=== PATIENT | male | born 1955 | race Caucasian/White ===

== ENCOUNTER 2016-11-04 05:34 | Inpatient (IN) | payer OTHER ==
[~2016-11-04] VITALS: Ht 162.6 cm; Wt 96.2 kg
[~2016-11-04 05:34] MED LIST: AMLO5TAB2 PO; ASPI-496 PO; FERR325T20 PO; FLUO15CR2 TP; HYDR-3240 PO; OMEP-110 PO; OXYC-302 PO; POLY17PO5 PO; POTA10TA5 PO; POTASSIUM PO; TELM1TAB3 PO
[2016-11-04 06:24] VITALS: BP 143/81
[2016-11-04] MEDS ORDERED: LACTATED RINGERS 1,000 ML IV SCH (06:24)
[2016-11-04] MEDS ORDERED: LIDOCAINE 1%, 2ML SQ PRN (06:30)
[2016-11-04] MEDS ORDERED: NEOM500T PO (06:30)
[2016-11-04] MEDS ORDERED: METR250T4 PO (06:30)
[2016-11-04] MEDS ORDERED: IBUP800T PO (06:30)
[2016-11-04] MEDS ORDERED: FENTANYL PF 250 MCG/5ML ONE (07:08)
[2016-11-04] MEDS ORDERED: HYDROmorphone 1 MG/ML, 1ML ONE (07:08)
[2016-11-04] MEDS ORDERED: MIDAZOLAM 1 MG/ML, 2ML ONE (07:08)
[2016-11-04] MEDS ORDERED: BUPIVACAINE/PF-EPI 0.25% 1:200K ONE (07:15)
[2016-11-04] MEDS ORDERED: HEPARIN 1,000 UNITS/ML, 10ML ONE (07:15)
[2016-11-04] MEDS ORDERED: THROMBIN 20,000 UNIT VIAL TP ONE (07:15)
[2016-11-04] MEDS ORDERED: PROPOFOL 10 MG/ML, 20ML ONE (07:35)
[2016-11-04] MEDS ORDERED: ESMOLOL 100 MG/10 ML ONE (07:35)
[2016-11-04] MEDS ORDERED: SUCCINYLCHOLINE 20 MG/ML, 10ML ONE (07:35)
[2016-11-04] MEDS ORDERED: CEFOTETAN 2 GM ONE (07:35)
[2016-11-04] MEDS ORDERED: PHENYLEPHRINE 10 MG/ML ONE (07:35)
[2016-11-04] MEDS ORDERED: ROCURONIUM 10 MG/ML ONE (07:35)
[2016-11-04] MEDS ORDERED: EPINEPHRINE 1 MG/ML, 1ML ONE (07:35)
[2016-11-04] MEDS ORDERED: ONDANSETRON 2MG/ML, 2ML ONE (07:35)
[2016-11-04] MEDS ORDERED: DEXAMETHASONE 4 MG/ML, 1ML ONE (07:35)
[2016-11-04] MEDS ORDERED: ALBUMIN HUMAN 5% 500 ML ONE (07:47)
[2016-11-04] MEDS ORDERED: VASOPRESSIN 20 UNIT/ML, 1ML ONE (08:20)
[2016-11-04] MEDS ORDERED: BUPIVACAINE/PF 0.25% ONE (08:20)
[2016-11-04] MEDS ORDERED: BUPIVACAINE/PF-EPI 0.25% 1:200K INFIL ONE (08:59)
[2016-11-04] MEDS ORDERED: PROMETHAZINE 25 MG/ML, 1ML IV PRN (10:00)
[2016-11-04] MEDS ORDERED: EPIDURAL CONTINUOUS INFUSION EPIDCONT SCH (10:00)
[2016-11-04] MEDS ORDERED: NALBUPHINE 10 MG/ML, 1ML IVPush PRN (10:00)
[2016-11-04] MEDS ORDERED: FENTANYL EPIDCONT SCH (10:00)
[2016-11-04] MEDS ORDERED: MEPERIDINE/PF 25MG/0.5ML IVPush PRN (10:00)
[2016-11-04] MEDS ORDERED: OXYcodone 5 MG/5 ML ORAL.SOL UDC PO PRN (10:00)
[2016-11-04] MEDS ORDERED: ONDANSETRON 2MG/ML, 2ML IVPush PRN (10:00)
[2016-11-04] MEDS: SODIUM CHLORIDE FLUSH 10ML SYR IVF SCH ×2 (10:00→21:18)
[2016-11-04] MEDS ORDERED: MIDAZOLAM 1 MG/ML, 2ML IV PRN (10:00)
[2016-11-04] MEDS ORDERED: LABETALOL 5MG/ML, 20ML IV PRN (10:00)
[2016-11-04] MEDS ORDERED: HYDROmorphone 1 MG/ML, 1ML IV PRN (10:00)
[2016-11-04] MEDS ORDERED: SODIUM CHLORIDE 0.9% EPIDCONT SCH ×2 (10:00→11:00)
[2016-11-04] MEDS ORDERED: hydrALAzine 20 MG/ML, 1ML IV PRN (10:00)
[2016-11-04] MEDS ORDERED: EPHEDRINE 50 MG/ML, 1ML IVPush PRN ×2 (10:00)
[2016-11-04] MEDS ORDERED: BUPIVACAINE EPIDCONT SCH ×2 (10:00→11:00)
[2016-11-04] MEDS ORDERED: ACETAMINOPHEN 325 MG TABLET PO PRN (10:00)
[2016-11-04] MEDS ORDERED: KETOROLAC 30 MG/1 ML IV PRN ×2 (10:00→18:30)
[2016-11-04] MEDS ORDERED: HYDROcodone/APAP 7.5-325MG/15ML UDC PO PRN (10:00)
[2016-11-04] MEDS ORDERED: DO NOT GIVE XX SCH ×2 (10:00)
[2016-11-04] MEDS ORDERED: FENTANYL PF 100 MCG/2ML ONE ×3 (15:23→17:21)
[2016-11-04] MEDS: FENTANYL PF 100 MCG/2ML IV PRN ×4 (15:53→17:38)
[2016-11-04] MEDS ORDERED: HYDROmorphone 2 MG/ML, 1ML ONE (16:24)
[2016-11-04] MEDS ORDERED: ACETAMINOPHEN 650 MG/20.3 ML UDC ONE (16:24)
[2016-11-04] MEDS ORDERED: OXYcodone 5 MG/5 ML ORAL.SOL UDC ONE (16:25)
[2016-11-04] MEDS ORDERED: ACETAMINOPHEN 325 MG TABLET ONE (16:25)
[2016-11-04] MEDS: HYDROmorphone 1 MG/ML, 1ML IV PRN ×2 (16:30→16:43)
[2016-11-04] MEDS: BUPIVACAINE EPIDCONT SCH (17:17)
[2016-11-04] MEDS: SODIUM CHLORIDE 0.9% EPIDCONT SCH (17:17)
[2016-11-04] MEDS ORDERED: morphine SULFATE 10 MG/ML, 1ML IV PRN (18:30)
[2016-11-04] MEDS ORDERED: DIPHENHYDRAMINE 25 MG CAPSULE PO PRN (18:30)
[2016-11-04] MEDS: LACTATED RINGERS 1,000 ML IV SCH (18:30)
[2016-11-04] MEDS ORDERED: DIPHENHYDRAMINE 50 MG/ML, 1ML IV PRN (18:30)
[2016-11-04] MEDS: CEFOTETAN PMX 2GM/50ML 50 ML IVPB SCH (19:23)
[2016-11-04 21:18] VITALS: BP 110/58
[2016-11-05 00:19] VITALS: BP 122/61
[2016-11-05] MEDS: LACTATED RINGERS 1,000 ML IV SCH ×3 (00:25→17:25)
[2016-11-05] MEDS: HYDROmorphone 1 MG/ML, 1ML IV PRN ×3 (02:26→08:20)
[2016-11-05] MEDS: BUPIVACAINE EPIDCONT SCH ×3 (02:32→16:21)
[2016-11-05] MEDS: SODIUM CHLORIDE 0.9% EPIDCONT SCH ×3 (02:32→16:21)
[2016-11-05 04:18] VITALS: BP 121/63
[2016-11-05 05:00] LABS: BLOOD UREA NITROGEN 17 mg/dL (7-18)
[2016-11-05] MEDS: CEFOTETAN PMX 2GM/50ML 50 ML IVPB SCH (06:49)
[2016-11-05 07:44] VITALS: BP 107/60
[2016-11-05] MEDS ORDERED: HYDROmorphone 1 MG/ML, 1ML IVPush PRN ×3 (08:00→20:00)
[2016-11-05] MEDS ORDERED: MAGNESIUM SULFATE PMX 2GM/50ML 50 ML IV ONE (08:00)
[2016-11-05] MEDS: SODIUM CHLORIDE FLUSH 10ML SYR IVF SCH ×2 (08:21→21:00)
[2016-11-05] MEDS: AMLODIPINE 5 MG TABLET PO SCH (08:31)
[2016-11-05] MEDS: HYDROCHLOROTHIAZIDE 12.5 MG CAPSULE PO SCH (08:31)
[2016-11-05] MEDS: LOSARTAN 50MG TABLET PO SCH (08:31)
[2016-11-05] MEDS: ENOXAPARIN 40 MG/0.4 ML SQ SCH (09:00)
[2016-11-05] MEDS ORDERED: HYDROmorphone 1 MG/ML, 1ML IV PRN (10:00)
[2016-11-05] MEDS ORDERED: HYDROmorphone 1 MG/ML, 1ML IV ONE (10:00)
[2016-11-05] MEDS ORDERED: FENTANYL PF 100 MCG/2ML IV ONE (11:00)
[2016-11-05] MEDS: FENTANYL PF 100 MCG/2ML IVPush PRN ×6 (11:01→16:15)
[2016-11-05] MEDS ORDERED: LIDOCAINE/PF 1.5-EPI 1:200K, 30 ML INFIL ONE (14:00)
[2016-11-05 14:30] VITALS: BP 123/75
[2016-11-05] MEDS ORDERED: HYDROmorphone 2 MG/ML, 1ML IVPush ONE (14:30)
[2016-11-05] MEDS ORDERED: BUPIVACAINE 0.25% ONE ×2 (15:11→17:40)
[2016-11-05] MEDS ORDERED: HYDROmorphone PCA 30 MG/30 ML IV PRN (17:00)
[2016-11-05] MEDS: ONDANSETRON 2MG/ML, 2ML IV PRN (17:22)
[2016-11-05 18:51] VITALS: BP 138/75
[2016-11-06] MEDS: LACTATED RINGERS 1,000 ML IV SCH ×2 (00:36→08:08)
[2016-11-06 03:01] VITALS: BP 126/77
[2016-11-06 05:31] LABS: BLOOD UREA NITROGEN 14 mg/dL (7-18)
[2016-11-06 07:28] VITALS: BP 139/77
[2016-11-06] MEDS: OMEPRAZOLE 20 MG CAPSULE.DR PO SCH (08:06)
[2016-11-06] MEDS: AMLODIPINE 5 MG TABLET PO SCH (08:07)
[2016-11-06] MEDS: HYDROCHLOROTHIAZIDE 12.5 MG CAPSULE PO SCH (08:07)
[2016-11-06] MEDS: LOSARTAN 50MG TABLET PO SCH (08:07)
[2016-11-06] MEDS: SODIUM CHLORIDE FLUSH 10ML SYR IVF SCH ×2 (08:08→21:00)
[2016-11-06] MEDS: ONDANSETRON 2MG/ML, 2ML IV PRN ×3 (10:13→23:57)
[2016-11-06] MEDS: ENOXAPARIN 40 MG/0.4 ML SQ SCH (10:14)
[2016-11-06] MEDS: KETOROLAC 30 MG/1 ML IV SCH ×3 (12:01→23:48)
[2016-11-06] MEDS: NS + 20MEQ KCL 1,000 ML IV SCH (12:41)
[2016-11-06 13:51] VITALS: BP 134/74
[2016-11-06 19:31] VITALS: BP 137/76
[2016-11-07 01:30] VITALS: BP 146/72
[2016-11-07] MEDS: ONDANSETRON 2MG/ML, 2ML IV PRN (05:48)
[2016-11-07] MEDS: KETOROLAC 30 MG/1 ML IV SCH ×4 (05:56→23:11)
[2016-11-07] MEDS ORDERED: CALCIUM CARBONATE 500 MG TAB.CHEW PO PRN (06:30)
[2016-11-07 07:24] VITALS: BP 122/72
[2016-11-07] MEDS: NS + 20MEQ KCL 1,000 ML IV SCH (08:10)
[2016-11-07 08:30] VITALS: BP 132/68
[2016-11-07] MEDS: OMEPRAZOLE 20 MG CAPSULE.DR PO SCH (08:33)
[2016-11-07] MEDS: HYDROCHLOROTHIAZIDE 12.5 MG CAPSULE PO SCH (08:33)
[2016-11-07] MEDS: AMLODIPINE 5 MG TABLET PO SCH (08:34)
[2016-11-07] MEDS: LOSARTAN 50MG TABLET PO SCH (08:34)
[2016-11-07] MEDS: ENOXAPARIN 40 MG/0.4 ML SQ SCH (08:35)
[2016-11-07] MEDS: SODIUM CHLORIDE FLUSH 10ML SYR IVF SCH ×2 (09:00→23:12)
[2016-11-07 09:29] LABS: BLOOD UREA NITROGEN 31 mg/dL (7-18)
[2016-11-07 09:32] LABS: ASPARTATE AMINO TRANSFERASE 9 U/L (15-37)
[2016-11-07 13:21] VITALS: BP 112/67
[2016-11-07 19:26] VITALS: BP 107/61
[2016-11-08 01:18] VITALS: BP 106/57
[2016-11-08] MEDS: NS + 20MEQ KCL 1,000 ML IV SCH (04:32)
[2016-11-08 05:26] LABS: ASPARTATE AMINO TRANSFERASE 12 U/L (15-37); BLOOD UREA NITROGEN 32 mg/dL (7-18)
[2016-11-08] MEDS: KETOROLAC 30 MG/1 ML IV SCH ×3 (06:09→18:13)
[2016-11-08 08:10] VITALS: BP 120/64
[2016-11-08] MEDS: SODIUM CHLORIDE FLUSH 10ML SYR IVF SCH ×2 (09:00→21:00)
[2016-11-08 09:17] VITALS: BP 120/69
[2016-11-08] MEDS: AMLODIPINE 5 MG TABLET PO SCH (09:19)
[2016-11-08] MEDS: HYDROCHLOROTHIAZIDE 12.5 MG CAPSULE PO SCH (09:19)
[2016-11-08] MEDS: OMEPRAZOLE 20 MG CAPSULE.DR PO SCH (09:19)
[2016-11-08] MEDS: ENOXAPARIN 40 MG/0.4 ML SQ SCH (09:19)
[2016-11-08] MEDS: LOSARTAN 50MG TABLET PO SCH (09:19)
[2016-11-08 13:10] VITALS: BP 120/70
[2016-11-08] MEDS: ONDANSETRON 2MG/ML, 2ML IV PRN (13:36)
[2016-11-08] MEDS: HYDROmorphone PCA 30 MG/30 ML IV PRN (18:54)
[2016-11-08 19:18] VITALS: BP 118/62
[2016-11-09 01:40] VITALS: BP 99/58
[2016-11-09 05:13] LABS: BLOOD UREA NITROGEN 33 mg/dL (7-18)
[2016-11-09 05:36] LABS: DIFF TOTAL CELLS COUNTED 100 CELL DIFF
[2016-11-09 05:42] LABS: VERIFY COUNTS? YES
[2016-11-09 05:43] LABS: POLYCHROMASIA 1+
[2016-11-09] MEDS: KETOROLAC 30 MG/1 ML IV SCH ×2 (05:49)
[2016-11-09 08:07] VITALS: BP 119/72
[2016-11-09] MEDS: LOSARTAN 50MG TABLET PO SCH (08:13)
[2016-11-09] MEDS: HYDROCHLOROTHIAZIDE 12.5 MG CAPSULE PO SCH (08:14)
[2016-11-09] MEDS: AMLODIPINE 5 MG TABLET PO SCH (08:15)
[2016-11-09] MEDS: OMEPRAZOLE 20 MG CAPSULE.DR PO SCH (08:15)
[2016-11-09] MEDS: SODIUM CHLORIDE FLUSH 10ML SYR IVF SCH ×2 (08:16→22:50)
[2016-11-09] MEDS: ENOXAPARIN 40 MG/0.4 ML SQ SCH (08:16)
[2016-11-09] MEDS: NS + 20MEQ KCL 1,000 ML IV SCH ×3 (15:06→22:50)
[2016-11-09 15:08] VITALS: BP 133/71
[2016-11-09] MEDS: ONDANSETRON 2MG/ML, 2ML IV PRN (17:26)
[2016-11-09 21:58] VITALS: BP 132/72
[2016-11-10] VITALS (11 sets, daily range): BP systolic 113–142; BP diastolic 55–73
[2016-11-10 04:54] LABS: BLOOD UREA NITROGEN 24 mg/dL (7-18)
[2016-11-10 05:50] LABS: DIFF TOTAL CELLS COUNTED 100 CELL DIFF
[2016-11-10 05:53] LABS: POLYCHROMASIA 1+; VERIFY COUNTS? YES
[2016-11-10] MEDS: NS + 20MEQ KCL 1,000 ML IV SCH ×2 (07:35→17:14)
[2016-11-10] MEDS: HYDROCHLOROTHIAZIDE 12.5 MG CAPSULE PO SCH (07:39)
[2016-11-10] MEDS: AMLODIPINE 5 MG TABLET PO SCH (07:40)
[2016-11-10] MEDS: SODIUM CHLORIDE FLUSH 10ML SYR IVF SCH ×2 (07:40→20:20)
[2016-11-10] MEDS: OMEPRAZOLE 20 MG CAPSULE.DR PO SCH (07:40)
[2016-11-10] MEDS: LOSARTAN 50MG TABLET PO SCH (07:40)
[2016-11-10] MEDS ORDERED: ENOXAPARIN 30 MG/0.3 ML SQ SCH (08:00)
[2016-11-11] MEDS: NS + 20MEQ KCL 1,000 ML IV SCH ×3 (01:18→19:24)
[2016-11-11 03:30] VITALS: BP 114/64
[2016-11-11 06:26] LABS: BLOOD UREA NITROGEN 18 mg/dL (7-18)
[2016-11-11 06:46] LABS: DIFF TOTAL CELLS COUNTED 100 CELL DIFF
[2016-11-11 06:49] LABS: VERIFY COUNTS? YES
[2016-11-11 06:51] LABS: POLYCHROMASIA 1+
[2016-11-11] MEDS ORDERED: ENOXAPARIN 30 MG/0.3 ML SQ SCH (08:00)
[2016-11-11 09:05] VITALS: BP 125/55
[2016-11-11] MEDS: HYDROCHLOROTHIAZIDE 12.5 MG CAPSULE PO SCH (09:07)
[2016-11-11] MEDS: LOSARTAN 50MG TABLET PO SCH (09:07)
[2016-11-11] MEDS: OMEPRAZOLE 20 MG CAPSULE.DR PO SCH (09:07)
[2016-11-11] MEDS: AMLODIPINE 5 MG TABLET PO SCH (09:07)
[2016-11-11] MEDS: ENOXAPARIN 40 MG/0.4 ML SQ SCH (09:07)
[2016-11-11] MEDS: SODIUM CHLORIDE FLUSH 10ML SYR IVF SCH ×2 (09:08→20:06)
[2016-11-11] MEDS: HYDROmorphone PCA 30 MG/30 ML IV PRN (09:11)
[2016-11-11 13:30] VITALS: BP 121/66
[2016-11-11 20:45] VITALS: BP 149/78
[2016-11-11 23:55] VITALS: BP 124/79
[2016-11-12 00:20] VITALS: BP 132/72
[2016-11-12 02:37] VITALS: BP 118/70
[2016-11-12] MEDS: NS + 20MEQ KCL 1,000 ML IV SCH ×3 (03:04→18:38)
[2016-11-12 07:35] VITALS: BP 122/70
[2016-11-12] MEDS: SODIUM CHLORIDE FLUSH 10ML SYR IVF SCH ×2 (07:50→20:32)
[2016-11-12] MEDS: ENOXAPARIN 40 MG/0.4 ML SQ SCH (10:01)
[2016-11-12] MEDS: OMEPRAZOLE 20 MG CAPSULE.DR PO SCH (10:02)
[2016-11-12] MEDS: HYDROCHLOROTHIAZIDE 12.5 MG CAPSULE PO SCH (10:03)
[2016-11-12] MEDS: LOSARTAN 50MG TABLET PO SCH (10:03)
[2016-11-12] MEDS: AMLODIPINE 5 MG TABLET PO SCH (10:03)
[2016-11-12 14:00] VITALS: BP 130/63
[2016-11-12 20:00] VITALS: BP 116/63
[2016-11-13] MEDS: NS + 20MEQ KCL 1,000 ML IV SCH ×3 (02:52→19:15)
[2016-11-13 02:53] VITALS: BP 120/71
[2016-11-13 04:36] LABS: BLOOD UREA NITROGEN 12 mg/dL (7-18)
[2016-11-13 07:19] VITALS: BP 111/59
[2016-11-13] MEDS: HYDROCHLOROTHIAZIDE 12.5 MG CAPSULE PO SCH (09:11)
[2016-11-13] MEDS: LOSARTAN 50MG TABLET PO SCH (09:11)
[2016-11-13] MEDS: AMLODIPINE 5 MG TABLET PO SCH (09:12)
[2016-11-13] MEDS: OMEPRAZOLE 20 MG CAPSULE.DR PO SCH (09:14)
[2016-11-13] MEDS: SODIUM CHLORIDE FLUSH 10ML SYR IVF SCH ×3 (09:14→19:13)
[2016-11-13] MEDS: ENOXAPARIN 40 MG/0.4 ML SQ SCH (09:14)
[2016-11-13 14:25] VITALS: BP 105/61
[2016-11-13 19:51] VITALS: BP 111/68
[2016-11-14 02:09] VITALS: BP 98/65
[2016-11-14] MEDS: NS + 20MEQ KCL 1,000 ML IV SCH ×2 (03:21→22:36)
[2016-11-14 04:48] LABS: BLOOD UREA NITROGEN 10 mg/dL (7-18)
[2016-11-14 07:25] VITALS: BP 128/75
[2016-11-14] MEDS ORDERED: MAGNESIUM SULFATE PMX 2GM/50ML 50 ML IV ONE (09:00)
[2016-11-14] MEDS: AMLODIPINE 5 MG TABLET PO SCH (09:06)
[2016-11-14] MEDS: HYDROcodone/APAP 5/325 TABLET PO PRN ×4 (09:06→21:15)
[2016-11-14] MEDS: SODIUM CHLORIDE FLUSH 10ML SYR IVF SCH ×2 (09:07→21:18)
[2016-11-14] MEDS: OMEPRAZOLE 20 MG CAPSULE.DR PO SCH (09:07)
[2016-11-14] MEDS: LOSARTAN 50MG TABLET PO SCH (09:07)
[2016-11-14] MEDS: HYDROCHLOROTHIAZIDE 12.5 MG CAPSULE PO SCH (09:07)
[2016-11-14] MEDS: ENOXAPARIN 40 MG/0.4 ML SQ SCH (09:08)
[2016-11-14] MEDS: MAGNESIUM OXIDE 400 MG TABLET PO SCH ×2 (09:40→21:18)
[2016-11-14] MEDS: HYDROmorphone PCA 30 MG/30 ML IV PRN (12:22)
[2016-11-14 13:49] VITALS: BP 102/63
[2016-11-14 20:04] VITALS: BP 112/61
[2016-11-15] MEDS: HYDROcodone/APAP 5/325 TABLET PO PRN ×6 (01:22→22:31)
[2016-11-15 04:41] VITALS: BP 120/63
[2016-11-15 06:00] LABS: BLOOD UREA NITROGEN 10 mg/dL (7-18)
[2016-11-15 08:15] VITALS: BP 115/62
[2016-11-15] MEDS: AMLODIPINE 5 MG TABLET PO SCH (09:00)
[2016-11-15] MEDS: LOSARTAN 50MG TABLET PO SCH (09:00)
[2016-11-15] MEDS: HYDROCHLOROTHIAZIDE 12.5 MG CAPSULE PO SCH (09:00)
[2016-11-15] MEDS: SODIUM CHLORIDE FLUSH 10ML SYR IVF SCH ×2 (09:00→21:00)
[2016-11-15] MEDS: OMEPRAZOLE 20 MG CAPSULE.DR PO SCH (09:48)
[2016-11-15] MEDS: ENOXAPARIN 40 MG/0.4 ML SQ SCH (09:50)
[2016-11-15 14:18] VITALS: BP 125/68
[2016-11-15] MEDS: NS + 20MEQ KCL 1,000 ML IV SCH (20:00)
[2016-11-15 21:16] VITALS: BP 116/61
[2016-11-16] MEDS: HYDROcodone/APAP 5/325 TABLET PO PRN ×3 (02:35→10:15)
[2016-11-16 03:58] LABS: BLOOD UREA NITROGEN 14 mg/dL (7-18)
[2016-11-16 04:42] VITALS: BP 104/63
[2016-11-16 06:45] VITALS: BP_SYST 124; BP_SYST 131; BP_DIAS 59; BP_DIAS 69
[2016-11-16] MEDS ORDERED: POLY17PO5 PO (07:22)
[2016-11-16] MEDS ORDERED: HYDR-3240 PO (07:22)
[2016-11-16] MEDS: OMEPRAZOLE 20 MG CAPSULE.DR PO SCH (07:50)
[2016-11-16] MEDS: ENOXAPARIN 40 MG/0.4 ML SQ SCH (10:03)
[2016-11-16] MEDS: SODIUM CHLORIDE FLUSH 10ML SYR IVF SCH (10:03)
[2016-11-16] MEDS: LOSARTAN 50MG TABLET PO SCH (10:04)
[2016-11-16] MEDS: HYDROCHLOROTHIAZIDE 12.5 MG CAPSULE PO SCH (10:04)
[2016-11-16] MEDS: AMLODIPINE 5 MG TABLET PO SCH (10:04)
== END 2016-11-16 12:55 | disposition home or self-care (01) | DRG 330 ==
LOC: ORIP 05:34 → 4NOR 18:13 → 3NW 11-09 19:34 → 4NOR 11-10 10:49 → DCLOUNGE 11-16 12:08
PROVIDERS: ADMIT Colon & Rectal Surgery; ATTEND Colon & Rectal Surgery
PROC: 0DBN0ZZ Excision of Sigmoid Colon, Open Approach (ICD-10-PCS; 2016-11-04)
PROC: 0DBB0ZZ Excision of Ileum, Open Approach (ICD-10-PCS; 2016-11-04)
PROC: 0VT00ZZ Resection of Prostate, Open Approach (ICD-10-PCS; 2016-11-04)
PROC: 0TRB07Z Replacement of Bladder with Autologous Tissue Substitute, Open Approach (ICD-10-PCS; 2016-11-04)
PROC: 0JH60WZ Insertion of Totally Implantable Vascular Access Device into Chest Subcutaneous Tissue and Fascia, Open Approach (ICD-10-PCS; 2016-11-04)
PROC: 02HV33Z Insertion of Infusion Device into Superior Vena Cava, Percutaneous Approach (ICD-10-PCS; 2016-11-04)
PROC: B5181ZA Fluoroscopy of Superior Vena Cava using Low Osmolar Contrast, Guidance (ICD-10-PCS; 2016-11-04)
PROC: B548ZZA Ultrasonography of Superior Vena Cava, Guidance (ICD-10-PCS; 2016-11-04)
PROC: 0DBP0ZZ Excision of Rectum, Open Approach (ICD-10-PCS; principal; 2016-11-04 07:30)
PROC: 0D1M0Z4 Bypass Descending Colon to Cutaneous, Open Approach (ICD-10-PCS; 2016-11-04 07:30)
PROC: 0DTJ0ZZ Resection of Appendix, Open Approach (ICD-10-PCS; 2016-11-04 07:30)
PROC: 30233N1 Transfusion of Nonautologous Red Blood Cells into Peripheral Vein, Percutaneous Approach (ICD-10-PCS; 2016-11-10)
DX: C20 Malignant neoplasm of rectum (principal); N17.9 Acute kidney failure, unspecified; C79.11 Secondary malignant neoplasm of bladder; D72.829 Elevated white blood cell count, unspecified; D50.9 Iron deficiency anemia, unspecified; I10 Essential (primary) hypertension; Z79.82 Long term (current) use of aspirin; Z79.899 Other long term (current) drug therapy; Z82.49 Family history of ischemic heart disease and other diseases of the circulatory system; Z92.21 Personal history of antineoplastic chemotherapy; Z92.3 Personal history of irradiation
CPT/HCPCS: 36415; 71010; 76000; 76770; 80048; 80053; 82040; 82330; 82803; 82947; 83735; 84132; 84295; 85014; 85025; 86850; 86900; 86923; 88304; 88309; C1729; J0171; J1100; J1170; J1644; J1650; J1885; J2250; J2405; J2704; J3010; J3480; J3490; P9045; C1765; C1788; J0330; J1200; J2370; J3475; J7120; P9016; S0074

== ENCOUNTER 2017-05-24 13:05 | Emergency (ER) | payer OTHER ==
[~2017-05-24] VITALS: Ht 162.6 cm; Wt 86.5 kg
[~2017-05-24 13:05] MED LIST changes: -DIPHENHYDRAMINE 50 MG/ML, 1ML ONE; -OMNIPAQUE 350 MG/ML, 100ML BOTTLE ONE
[2017-05-24] MEDS ORDERED: SODIUM CHLORIDE 0.9% 1,000 ML IV ONE (13:45)
[2017-05-24] MEDS ORDERED: SODIUM CHLORIDE FLUSH 10ML SYR IVF ONE (14:00)
[2017-05-24] MEDS ORDERED: DIPHENHYDRAMINE 50 MG/ML, 1ML IVPush ONE (14:00)
[2017-05-24] MEDS ORDERED: ONDANSETRON 2MG/ML, 2ML IVPush ONE (14:00)
[2017-05-24 14:09] LABS: HEMATOCRIT 40.9 % (39.2-51.8); HEMOGLOBIN 13.3 g/dL (13.7-18.0); WHITE BLOOD COUNT 9.4 x10^3/uL (3.4-10)
[2017-05-24 14:12] LABS: BLOOD UREA NITROGEN 16 mg/dL (7-18)
[2017-05-24] MEDS ORDERED: DIPHENHYDRAMINE 50 MG/ML, 1ML ONE (14:24)
[2017-05-24] MEDS ORDERED: ONDANSETRON 2MG/ML, 2ML ONE (14:24)
[2017-05-24 16:26] VITALS: BP 106/66
== END 2017-05-24 16:46 | disposition home or self-care (01) ==
LOC: ED 15:02
DX: R11.0 Nausea (principal); T50.8X5A Adverse effect of diagnostic agents, initial encounter; Y92.89 Other specified places as the place of occurrence of the external cause; I10 Essential (primary) hypertension
CPT/HCPCS: 36415; 80048; 82040; 85025; 96361; 96374; 96375; 99285; J1200; J2405; J7030

== ENCOUNTER → 2017-05-24 | Outpatient (CLI) | payer OTHER ==
[~2017-05-24] MED LIST changes: +DIPHENHYDRAMINE 50 MG/ML, 1ML ONE; +FERR325T18 PO; -FERR325T20 PO; +IBUP-1223 PO; +METR250T12 PO; +NEOM500T PO; +OMNIPAQUE 350 MG/ML, 100ML BOTTLE ONE
== END | disposition home or self-care (01) ==
LOC: RAD 10:41
PROVIDERS: ATTEND Internal Medicine Hematology & Oncology
DX: C20 Malignant neoplasm of rectum (principal); C67.9 Malignant neoplasm of bladder, unspecified; K44.9 Diaphragmatic hernia without obstruction or gangrene; K80.20 Calculus of gallbladder without cholecystitis without obstruction; Z93.3 Colostomy status
CPT/HCPCS: 36415; 71260; 74177; 82565; J1200; Q9967

== ENCOUNTER → 2018-06-01 | Outpatient (CLI) | payer OTHER ==
[~2018-06-01] MED LIST changes: -AMLO5TAB2 PO; +AMLO5TAB7 PO; +OMNIPAQUE 350 MG/ML, 100ML BOTTLE ONE
== END | disposition home or self-care (01) ==
LOC: CFH 10:42
PROVIDERS: ATTEND Internal Medicine Hematology & Oncology
DX: C20 Malignant neoplasm of rectum (principal)
CPT/HCPCS: 71260; 74177; 82565; Q9967

== ENCOUNTER → 2018-12-04 | Outpatient (CLI) | payer OTHER ==
[~2018-12-04] MED LIST changes: +AMLO-150 PO; -AMLO5TAB7 PO; -METR250T12 PO; +METR250T18 PO
== END | disposition home or self-care (01) ==
LOC: RAD 13:40
PROVIDERS: ATTEND Internal Medicine Hematology & Oncology
DX: C20 Malignant neoplasm of rectum (principal)
CPT/HCPCS: 71260; 74177; Q9967

== ENCOUNTER → 2020-04-14 | Outpatient (CLI) | payer OTHER ==
[~2020-04-14] MED LIST changes: +ATOR20TA37 PO; +GABA300C PO; -OMNIPAQUE 350 MG/ML, 100ML BOTTLE ONE
[2020-04-14 13:41] LABS: CHLORIDE 108 mmol/L (98-107)
[2020-04-14 13:59] LABS: ALANINE AMINOTRANSFERASE 41 U/L (12-78); ALBUMIN 3.3 g/dL (3.4-5.0); ALKALINE PHOSPHATASE 103 U/L (45-117); ANION GAP 7 mmol/L (5-15); BILIRUBIN,TOTAL 0.9 mg/dL (0.2-1.0); CREATININE 1.36 mg/dL (0.7-1.3); TOTAL PROTEIN 7.7 g/dL (6.4-8.2)
== END | disposition home or self-care (01) ==
LOC: STAR 11:04
PROVIDERS: ATTEND Colon & Rectal Surgery
DX: Z01.812 Encounter for preprocedural laboratory examination (principal); Z20.828 Contact with and (suspected) exposure to other viral communicable diseases; R94.31 Abnormal electrocardiogram [ECG] [EKG]
CPT/HCPCS: 36415; 80053; 87635; 93005

== ENCOUNTER → 2020-06-23 | Outpatient (CLI) | payer OTHER ==
[~2020-06-23] MED LIST changes: +ACET500T76 PO; +GADOTERATE 10 MMOL/20 ML VIAL ONE; +LOSA100T14 PO; +OXYC5TAB3 PO; +TRAM-47 PO
== END | disposition home or self-care (01) ==
LOC: CFH 11:19
PROVIDERS: ATTEND Internal Medicine Hematology & Oncology
DX: C20 Malignant neoplasm of rectum (principal); N13.30 Unspecified hydronephrosis; K80.20 Calculus of gallbladder without cholecystitis without obstruction
CPT/HCPCS: 71250; 74183; A9575